=== PATIENT | female | born 1990 | race Caucasian/White ===

== ENCOUNTER 2021-06-02 11:25 | Emergency (ER) | payer MEDICAID ==
[~2021-06-02] VITALS: Ht 160 cm; Wt 78.7 kg
== END 2021-06-02 13:00 | disposition home or self-care (01) ==
LOC: ER 11:25
DX: S60.042A Contusion of left ring finger without damage to nail, initial encounter (principal); S60.032A Contusion of left middle finger without damage to nail, initial encounter; S60.512A Abrasion of left hand, initial encounter; M54.50 Low back pain, unspecified; Z88.1 Allergy status to other antibiotic agents; Z88.8 Allergy status to other drugs, medicaments and biological substances; V87.7XXA Person injured in collision between other specified motor vehicles (traffic), initial encounter; Y93.89 Activity, other specified; Y92.89 Other specified places as the place of occurrence of the external cause; Y99.8 Other external cause status
CPT/HCPCS: 29125; 73130; 99283

== ENCOUNTER 2021-06-18 14:59 | Emergency (ER) | payer MEDICAID ==
[~2021-06-18] VITALS: Ht 160 cm; Wt 77.3 kg
[2021-06-18 15:04] VITALS: BP 145/88
[2021-06-18] MEDS ORDERED: ONDA4TAB12 PO (17:30)
[2021-06-18] MEDS ORDERED: MECL-159 PO (17:30)
[2021-06-18] MEDS ORDERED: meclizine 12.5mg tablet PO ONE (17:35)
[2021-06-18] MEDS ORDERED: ondansetron 4mg rapidly disintigrating tab PO ONE (17:35)
== END 2021-06-18 18:12 | disposition home or self-care (01) ==
LOC: ER 15:00
DX: R42 Dizziness and giddiness (principal); W19.XXXA Unspecified fall, initial encounter; Y93.89 Activity, other specified; Y92.89 Other specified places as the place of occurrence of the external cause; Y99.8 Other external cause status; Z88.0 Allergy status to penicillin
CPT/HCPCS: 99283; J8597

== ENCOUNTER 2021-06-22 09:38 | Emergency (ER) | payer MEDICAID ==
[~2021-06-22] VITALS: Ht 160 cm; Wt 75.0 kg
[~2021-06-22 09:38] MED LIST: MECL-159 PO; ONDA4TAB12 PO
[2021-06-22] MEDS ORDERED: proCHLORperazine 10 MG/2 ml inj IV ONE (09:55)
[2021-06-22] MEDS ORDERED: iohexol 350MG/ML 100ml bottle IV ONE (10:00)
--- NOTE | 2021-06-22 10:08 | NUR ---
To CT via [facility].
[2021-06-22 10:19] LABS: BASOPHILS # (AUTO) 0.1 X10'3 (0-0.2); BASOPHILS % (AUTO) 1.1 % (0-1); EOSINOPHILS % (AUTO) 0.5 % (0-6); HEMOGLOBIN 13.6 g/dl (12.0-16.0); LYMPHOCYTES # (AUTO) 1.7 X10'3 (1.1-4.8); LYMPHOCYTES % (AUTO) 32.3 % (21-51); MEAN CORPUSCULAR VOLUME 91.4 FL (78-98); MEAN PLATELET VOLUME 8.1 FL (7.4-10.4); MONOCYTES # (AUTO) 0.3 X10'3 (0-0.9); MONOCYTES % (AUTO) 5.8 % (2-12); NEUTROPHILS # (AUTO) 3.2 X10'3 (1.8-7.7); NEUTROPHILS % (AUTO) 60.3 % (42-75); PLATELET COUNT 242 X10'3 (140-440); RED BLOOD COUNT 4.26 X10'6 (4.20-5.60); RED CELL DISTRIBUTION WIDTH 12.6 % (11.5-14.5); WHITE BLOOD COUNT 5.2 X10'3 (4.5-11.0)
[2021-06-22 10:37] LABS: HCG SERUM QL NEGATIVE
[2021-06-22 10:43] LABS: ALANINE AMINOTRANSFERASE 14 U/L (12-78); ALBUMIN/GLOBULIN RATIO 1.3 (1.1-1.5); ALKALINE PHOSPHATASE 63 IU/L (46-116); ANION GAP 12 (8-16); ASPARTATE AMINO TRANSFERASE 12 U/L (10-37); BILIRUBIN,TOTAL 0.4 MG/DL (0.1-1.0); BLOOD UREA NITROGEN 10 MG/DL (7-18); CALCIUM 8.6 MG/DL (8.5-10.1); CHLORIDE 103 MMOL/L (99-107); CREATININE 0.77 MG/DL (0.40-0.90); GLUCOSE 95 MG/DL (70-104); SODIUM 139 MMOL/L (135-145); TOTAL CARBON DIOXIDE 24.4 MMOL/L (24-32); TOTAL PROTEIN 7.2 G/DL (6.4-8.2); eGFR 89 ML/MIN
[2021-06-22] MEDS ORDERED: meclizine 12.5mg tablet PO ONE (11:20)
[2021-06-22 11:30] VITALS: BP 110/58
[2021-06-22] MEDS ORDERED: PROC-8 PO (11:43)
--- NOTE | 2021-06-22 11:55 | NUR ---
Pt given and understands d/c instructions. IV d/c'd, catheter was intact.
[2021-06-22 12:47] LABS: POTASSIUM 3.7 MMOL/L (3.5-5.1)
== END 2021-06-22 11:55 | disposition home or self-care (01) ==
LOC: ER 09:39 → EEVIPCON 09:39 → ER 11:55
DX: R42 Dizziness and giddiness (principal); R51.9 Headache, unspecified; Z88.1 Allergy status to other antibiotic agents; Z88.8 Allergy status to other drugs, medicaments and biological substances; Z79.899 Other long term (current) drug therapy
CPT/HCPCS: 36415; 70450; 70496; 70498; 80053; 82948; 84703; 85025; 93005; 96374; 99285; J0780; Q9967

== ENCOUNTER 2021-08-18 09:45 | Outpatient (CLI) | payer BC ==
[~2021-08-18 09:45] MED LIST changes: +PROC-8 PO
== END 2021-08-18 23:59 | disposition home or self-care (01) ==
LOC: RAD 09:45
PROVIDERS: ATTEND Family Medicine
DX: R42 Dizziness and giddiness (principal)
CPT/HCPCS: 70551

== ENCOUNTER 2021-10-04 08:41 | Emergency (ER) | payer BC ==
[~2021-10-04] VITALS: Ht 160 cm; Wt 74.5 kg
[2021-10-04] MEDS ORDERED: ketorolac trometh inj. 60 MG/2 ML VIAL IM ONE (08:55)
[2021-10-04] MEDS ORDERED: ORPH100T2 PO (08:55)
[2021-10-04 08:58] VITALS: BP 133/82
== END 2021-10-04 09:33 | disposition home or self-care (01) ==
LOC: EEVIPCON 08:41 → ER 08:41
DX: G89.29 Other chronic pain (principal); M54.59 Other low back pain; M54.32 Sciatica, left side; Z88.0 Allergy status to penicillin; Z88.1 Allergy status to other antibiotic agents; Z79.899 Other long term (current) drug therapy
CPT/HCPCS: 96372; 99283; J1885

== ENCOUNTER 2022-01-08 10:41 | Emergency (ER) | payer BC ==
[~2022-01-08] VITALS: Ht 162.6 cm; Wt 72.0 kg
[~2022-01-08 10:41] MED LIST changes: +ORPH100T2 PO
[2022-01-08] MEDS ORDERED: cyclobenzaprine 10mg tablet PO ONE (11:35)
[2022-01-08] MEDS ORDERED: ketorolac trometh inj. 60 MG/2 ML VIAL IM ONE (11:35)
[2022-01-08 11:42] LABS: BASOPHILS # (AUTO) 0.1 X10'3 (0-0.2); EOSINOPHILS # (AUTO) 0.1 X10'3 (0-0.9); EOSINOPHILS % (AUTO) 2.1 % (0-6); HEMATOCRIT 39.7 % (35.0-45.0); HEMOGLOBIN 13.7 g/dl (12.0-16.0); LYMPHOCYTES % (AUTO) 39.4 % (21-51); MEAN CORPUSCULAR HEMOGLOBIN 32.1 PG (27.0-31.0); MEAN CORPUSCULAR HGB CONC 34.5 g/dL (33.0-36.5); MEAN CORPUSCULAR VOLUME 93.1 FL (78-98); MEAN PLATELET VOLUME 8.4 FL (7.4-10.4); MONOCYTES # (AUTO) 0.4 X10'3 (0-0.9); MONOCYTES % (AUTO) 7.6 % (2-12); NEUTROPHILS # (AUTO) 2.5 X10'3 (1.8-7.7); NEUTROPHILS % (AUTO) 49.9 % (42-75); PLATELET COUNT 246 X10'3 (140-440); RED BLOOD COUNT 4.26 X10'6 (4.20-5.60); RED CELL DISTRIBUTION WIDTH 12.9 % (11.5-14.5); WHITE BLOOD COUNT 5.1 X10'3 (4.5-11.0)
[2022-01-08 11:57] LABS: ALANINE AMINOTRANSFERASE 12 U/L (12-78); ALBUMIN/GLOBULIN RATIO 1.1 (1.1-1.5); ALKALINE PHOSPHATASE 57 IU/L (46-116); ANION GAP 9 (8-16); ASPARTATE AMINO TRANSFERASE 17 U/L (10-37); BILIRUBIN,TOTAL 0.4 MG/DL (0.1-1.0); BLOOD UREA NITROGEN 10 MG/DL (7-18); BUN/CREATININE RATIO 12.8 (6.6-38.0); CALCIUM 8.5 MG/DL (8.5-10.1); CHLORIDE 103 MMOL/L (99-107); CREATININE 0.78 MG/DL (0.40-0.90); GLUCOSE 96 MG/DL (70-104); POTASSIUM 3.8 MMOL/L (3.5-5.1); SODIUM 138 MMOL/L (135-145); TOTAL CARBON DIOXIDE 26.4 MMOL/L (24-32); TOTAL PROTEIN 7.5 G/DL (6.4-8.2); eGFR 87 ML/MIN
[2022-01-08] MEDS ORDERED: CYCL-1 PO (13:38)
[2022-01-08] MEDS ORDERED: IBUP-1986 PO (13:38)
[2022-01-08 13:51] VITALS: BP 118/60
== END 2022-01-08 13:51 | disposition home or self-care (01) ==
LOC: ER 10:42
DX: S16.1XXA Strain of muscle, fascia and tendon at neck level, initial encounter (principal); R07.89 Other chest pain; Z88.1 Allergy status to other antibiotic agents; Z88.8 Allergy status to other drugs, medicaments and biological substances; X58.XXXA Exposure to other specified factors, initial encounter; Y93.89 Activity, other specified; Y92.89 Other specified places as the place of occurrence of the external cause; Y99.8 Other external cause status
CPT/HCPCS: 36415; 71045; 80053; 83880; 84484; 85025; 93005; 96372; 99285; J1885

== ENCOUNTER 2022-02-10 06:56 | Emergency (ER) | payer BC ==
[~2022-02-10] VITALS: Ht 160 cm; Wt 72.7 kg
[~2022-02-10 06:56] MED LIST changes: +CYCL-1 PO; +IBUP-1986 PO
[2022-02-10 07:03] VITALS: BP 118/75
== END 2022-02-10 08:11 | disposition left against medical advice (07) ==
LOC: ER 06:56
DX: R42 Dizziness and giddiness (principal); Z53.21 Procedure and treatment not carried out due to patient leaving prior to being seen by health care provider
CPT/HCPCS: 93005